=== PATIENT | male | born 1965 | race Two or more races ===

== ENCOUNTER 2025-05-20 17:16 | Emergency (ER) | payer OTHER, SELFPAY ==
[2025-05-20 17:22] VITALS: BP 191/104
[2025-05-20 17:57] LABS: Hematocrit 48.3 % (39.0-52.0); Hemoglobin 16.5 g/dL (13.0-18.0); Mean Corp Hgb Conc. 34.2 g/dL (33.0-37.0); Mean Corpuscular Volume 87.3 fL (80.0-94.0); Nucleated Red Blood Cells % 0 % (-); Platelet Count 262 10^3/uL (130-400); Red Cell Dist. Width 13.0 % (11.5-14.5)
[2025-05-20 18:12] LABS: ALT (SGPT) 27 U/L (0-50); AST (SGOT) 31 U/L (17-59); Albumin 4.7 g/dl (3.5-5.0); Alkaline Phosphatase 129 U/L (38-126); Blood Urea Nitrogen 22 mg/dl (9-20); Calcium 10.0 mg/dl (8.4-10.2); Carbon Dioxide 30 mmol/L (22-30); Chloride 105 mmol/L (98-107); Glucose 95 mg/dl (70-99); Potassium 4.0 mmol/L (3.5-5.1); Sodium 144 mmol/L (135-145); Total Protein 7.1 g/dl (6.3-8.2); eGFR > 60.00
[2025-05-20 20:18] VITALS: BP 201/116
[2025-05-20 20:25] VITALS: BP 207/118
[2025-05-20 21:00] VITALS: BP 204/122
[2025-05-20] MEDS: DUONEB 3 ML INH (21:05)
[2025-05-20] MEDS: DECADRON 10 MG IV (21:06)
[2025-05-20] MEDS: NORVASC 5 MG PO (21:06)
[2025-05-20 21:18] VITALS: BP 207/111
[2025-05-20 21:43] VITALS: BP 191/97
--- NOTE | 2025-05-21 00:01 | ED.GENMED ---
History of Present Illness
General
Chief Complaint: Breathing Problem
Source: patient and top spotter (language line)
Exam Limitations: none
Time Seen by Provider: 05/20/25 20:23
Nursing documentation reviewed up to this point in time: agreed with
History of Present Illness
History of Present Illness:
Patient to ED [facility] complaint of chest tightness, wheezing. History of asthma, bronchitis. He states he has an inhaler but is not sure of the name. States he uses it 2times daily but is currently not helping. 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 Does not have a PCP. WIll not be staying in this area.
Past History
Past History
ED Past Medical History: Asthma and HTN
Review of Systems
Review of Systems
Allergies reviewed?: Yes
All Other Systems: ROS reviewed and negative except as documented in HPI and ROS
Constitutional: Reports no symptoms
EENT: Reports no symptoms
Respiratory: Reports trouble breathing
Cardiac: Reports no symptoms
ABD/GI: Reports no symptoms
: Reports no symptoms
Musculoskeletal: Reports no symptoms
Skin: Reports no symptoms
Neurological: Reports no symptoms
Psychiatric: Reports no symptoms
Phy Exam
General Physical Exam
General Presentation: well appearing and mild distress
General age: appears stated age
General Skin: warm and dry
General Habitus: normal
General Mental: alert
General Hydration: appears well hydrated
Cardiovascular Exam
Cardiovascular Exam: regular rate/rhythm and no edema
Pulmonary Exam
Pulmonary Exam: no respiratory distress, chest non tender and generalized wheezing
Gastrointestinal Exam
Gastrointestinal Exam: normal bowel sounds, non tender and soft
Musculoskeletal Exam
Musculoskeletal Exam: full ROM and neuro vasc intact
Skin Exam
Skin Exam: normal color, warm/dry and no rash
Psychiatric Exam
Psychiatric Exam: normal mood/affect
Scores
Heart Failure Risk
Heart Failure Risk Score: Not Applicable
Course
Orders/Labs/Results
Orders:
Orders
05/20/25 17:37
Chest [CR Chest - 2 Views ] Urgent
Comment:
Reason For Exam: asthma
05/20/25 17:38
EKG [Electrocardiogram (*1)] Urgent
Reason for Study: Shortness of Breath
EKG- Treatment ONCE
05/20/25 17:41
Complete Blood Count/With Diff Urgent
Comprehensive Metabolic Panel Urgent
05/20/25 20:41
Amlodipine [Norvasc] 5 mg PO NOW STA
Dexamethasone Sod Phosphate [Decadron] 10 mg IV NOW STA
Ipratropium/Albuterol Sulfate [Duoneb] 3 ml INH R NOW ONE
Abnormal Lab Results
05/20/25
17:41
BUN 22 H mg/dl
(9-20)
Alkaline Phosphatase 129 H U/L
(38-126)
05/20/25 17:41
05/20/25 17:41
Vital Signs
Initial and Last Documented VS:
Initial Vital Signs
Temp Pulse Resp BP Pulse Ox
98.9 F 75 18 191/104 97
05/20/25 17:22 05/20/25 17:22 05/20/25 17:22 05/20/25 17:22 05/20/25 17:22
Last Documented Vital Signs
Temp Pulse Resp BP Pulse Ox
98.9 F 73 23 191/97 94
05/20/25 17:22 05/20/25 21:45 05/20/25 21:45 05/20/25 21:43 05/21/25 00:05
*Radiology
Radiology exam reviewed: radiology read reviewed
*Pulse Oximetry
SaO2: 94
Oxygen Mode of Delivery: Room air
Patient hypoxic: no
*Critical Care Note
Total Time (30-74mins, 75-104mins- exclusive of procedures): Not Applicable
Update Note
Update Note:
Patient to ED with report of chest tightness and wheezing. History of asthma, frequent bronchitis. Generalized wheezing noted on exam. Pulse ox 97% RA. He was given a dose of decadron and duoneb in ED with some improvement in breath sounds.
Recommend admission for further treatment of asthma exacerbation however patient has declined admission despite discussion on risks of leaving ED. Will prescribe prednisone taper and albuterol MDI. He was given instructions on s/s to return to
closest ED as he plans on leaving this area. He is agreeable to plan. BP also elevated while in ED. Given dose of apresoline with improvement. He is on BP medications but he was unable to recall name of med. He reports taking med each morning
and reports compliance. No cp/pressure, headache, dizziness, vision changes. Discussed with him again the need for admission to further evaluate and treat his elevated BP but he continues to decline despite discussion on risks of leaving ED. BP
189/91 on discharge. On discharge respirations are 20, pulse ox 97% RA. Able to speak in full sentences.
ED Attending Note
-
Portions of this chart may have been created with voice recognition software.� Occasional wrong word or��sound alike� substitutions may have occurred due to the inherent limitations of voice recognition software.
Discharge Plan
Departure
Patient Disposition: Home (Routine Discharge)
Date of Disposition: 05/20/25
Time of Disposition: 21:50
Patient with high blood pressure during this ER visit?: No
Condition: Good
Covid-19: Not Applicable
Discharge Problem:
Asthma exacerbation
Instructions: Asthma, Adult (DC), BLOOD PRESSURE
Prescriptions:
New
prednisone 10 mg Tablet
See Rx Instructions .ROUTE .COMPLEX Qty: 30 0RF
Rx Instructions:
Take By Mouth:
40 mg daily x3 days, 30 mg daily x3 days,
20 mg daily x3 days, 10 mg daily x3 days.
albuterol sulfate [Ventolin HFA] 90 mcg/actuation HFA aerosol inhaler
2 puff inhalation Q4H PRN (Reason: shortness of breath or wheezing) Qty: 8.5 0RF
Referrals:
NONE,* [Family Provider, Internal Medicine]
Activity Restrictions/Additional Instructions:
Return to the emergency department immediately for any changes in/worsening of your symptoms.
Interventions
Interventions:
*Risk Screen - Suicide Last Done: 05/20/25 17:23
*General Assessment Last Done: 05/20/25 17:23
*Neglect/Abuse Screening Last Done: 05/20/25 17:23
*ED- Fall Risk Assessment Last Done: 05/20/25 17:23
*ED COVID-19 Vaccine History Last Done: 05/20/25 17:23
*ED Influenza Vaccine History Last Done: 05/20/25 17:23
*Nursing Disposition Last Done: 05/20/25 22:20
ED- Cardiac Assessment Last Done: 05/20/25 20:40
ED- Pulmonary Assessment Last Done: 05/20/25 20:40
Discharge Date and Time
Discharge Date/Time: 05/20/25 22:21
Print Language: [id number]
== END 2025-05-20 22:21 | disposition home or self-care (01) ==
LOC: EMR 17:16
PROVIDERS: Emergency Medicine; EMERGENCY PHYSICIAN Emergency Medicine
DX: J45.901 Unspecified asthma with (acute) exacerbation (principal); R07.89 Other chest pain; I10 Essential (primary) hypertension; Z59.02 Unsheltered homelessness
CPT/HCPCS: 96374; 94640; 99284; 71046; 80053; 85025; 93005